=== PATIENT | female | born 1955 | race Caucasian/White ===

== ENCOUNTER 2025-04-25 17:53 | Emergency (ER) | payer MEDICAID ==
[~2025-04-25] VITALS: Ht 154.9 cm; Wt 73.0 kg
[2025-04-25 18:05] VITALS: O2SAT 98
[2025-04-25] MEDS: LIDOCAINE HCL 1% 20ML VIAL MC ONE (18:30)
[2025-04-25] MEDS: ACETAMINOPHEN 500MG TABLET PO ONE (18:30)
[2025-04-25] MEDS ORDERED: CEPH500T MT (19:28)
[2025-04-25] MEDS ORDERED: TOPUD MT (19:28)
[2025-04-25] MEDS ORDERED: BO1 TP (19:28)
[2025-04-25] MEDS: BACITRACIN ZINC OINT UDPKT TOP ONE (19:43)
[2025-04-25 19:57] VITALS: BP 163/92; PULSE 74; RESP 18; TEMP 36.7; O2SAT 98
== END 2025-04-25 19:58 | disposition home or self-care (01) ==
LOC: ER 17:53
DX: S81.012A Laceration without foreign body, left knee, initial encounter (principal); Z79.899 Other long term (current) drug therapy; W19.XXXA Unspecified fall, initial encounter; Y93.89 Activity, other specified; Y92.89 Other specified places as the place of occurrence of the external cause; Y99.8 Other external cause status
CPT/HCPCS: 73564; 12002; 99283; J2003; Z7610 ×2; A6449

== ENCOUNTER 2025-05-05 18:21 | Emergency (ER) | payer MEDICAID ==
[~2025-05-05] VITALS: Ht 154.9 cm; Wt 75.0 kg
[~2025-05-05 18:21] MED LIST: BO1 TP; CEPH500T MT; TOPUD MT
[2025-05-05 18:36] VITALS: O2SAT 99
[2025-05-05 19:07] VITALS: BP 147/66; PULSE 66; RESP 20; TEMP 36.8; O2SAT 99
== END 2025-05-05 19:08 | disposition home or self-care (01) ==
LOC: ER 18:21
DX: S81.012A Laceration without foreign body, left knee, initial encounter (principal); Z79.899 Other long term (current) drug therapy; X58.XXXD Exposure to other specified factors, subsequent encounter
CPT/HCPCS: 99282